=== PATIENT | female | born 1965 | race Caucasian/White ===

== ENCOUNTER 2016-07-14 23:00 | Inpatient (IN) | payer OTHER ==
--- NOTE | ~2016-07-14 | DS ---
Unit #: [id number] #: [id number] Patient: GAL LAST [id number] [facility] [address] [place] [address] [id number] MR#: [id number] NAME: GAL LAST. ROOM: [facility] Age: 51 Sex: F Admission Date: 07/15/2016 : 1965 Discharge Date: 07/18/2016 Attending Physician: Sulaiman Ramires M.D. Primary Care Physician: Generic Doctor Not In System DISCHARGE SUMMARY REASON FOR ADMISSION Alcohol abuse and withdrawal. DIAGNOSTIC STUDIES LABORATORY RESULTS: Unremarkable. HOSPITAL COURSE The patient was admitted to inpatient unit on 07/15/2016 and discharged on 07/18/2016. The patient was treated on the inpatient unit with chemical dependency group, detox protocol, detox monitoring, and psychoeducation. The patient was responsive to treatment. Subsequently, the patient was discharged with a plan to follow up at [facility]. DISCHARGE MEDICATIONS None. DISCHARGE DIAGNOSES Psychiatric: Alcohol use disorder, severe, F10.20. Secondary diagnosis: Deferred. Medical diagnosis: Hypertension. Stressors: Psychosocial stressors. DISCHARGE INSTRUCTIONS The patient to follow up in outpatient clinic as per manager social work. CONDITION ON DISCHARGE The patient was pleasant and cooperative. Denied any psychotic symptom or any suicidal ideation. PROGNOSIS Guarded. DIET AND ACTIVITY As tolerated. Dictated by... Sulaiman Ramires M.D. [facility] Unit #: [id number] #: [id number] Patient: GAL LAST TD: 07/18/2016 18:17 JOB #: [id number] DISCHARGE SUMMARY Page 1 of 1 X Sulaiman Ramires MD X DISCHARGE SUMMARY
--- NOTE | ~2016-07-14 | HP ---
Unit #: [id number] #: [id number] Patient: GAL LAST [id number] [place] [address] [id number] MR#: [id number] NAME: GAL LAST. ROOM: [facility] Age: 51 Sex: F Admission Date: 07/15/2016 : 1965 Attending Physician: Sulaiman Ramires M.D. Admitting Physician: Sulaiman Ramires M.D. Primary Care Physician: Generic Doctor Not In System HISTORY AND PHYSICAL HISTORY OF PRESENT ILLNESS Gal is a 51 year old admitted to [facility] because of her abuse of alcohol. She is detoxing. PAST MEDICAL HISTORY 1. Long history of alcohol abuse. 2. High blood pressure. PAST SURGICAL HISTORY Nothing reported. ALLERGIES Levaquin SOCIAL HISTORY Smokes one-half pack per day. Drinks at least a fifth of bourbon on a daily basis and denies illicit drug use. FAMILY HISTORY Medically noncontributory. REVIEW OF SYSTEMS CONSTITUTIONAL: No fever or chills. HEENT: Denies any sore throat, ear pain or runny nose. CARDIOVASCULAR: Denies chest pain, irregular heart rhythm or palpitations. CHEST: Denies shortness of breath or cough. No hemoptysis. GASTROINTESTINAL: Denies nausea, vomiting, diarrhea or chronic constipation. ENDOCRINE: Denies history of increased thirst or urination. No recent significant weight loss or gain. GENITOURINARY: Denies dysuria, frequency, or hematuria. SKIN: Denies any rashes. HEMATOLOGIC: Denies history of increased bleeding or bruising. MUSCULOSKELETAL: Denies any hot, swollen joints. No generalized muscle pain. NEUROLOGIC: Denies problems with vision or speech. No frequent, severe headaches. No numbness, tingling or weakness in any extremities. Denies loss of bladder or bowel control. CURRENT MEDICATIONS 1. Detox protocol 2. HCTZ 25 mg q day Unit #: [id number] #: [id number] Patient: GAL LAST 3. Cozaar 100 mg q day 4. Vistaril 50 mg q four hours p.r.n. PHYSICAL EXAMINATION GENERAL: Alert, well-nourished, in no apparent distress. VITAL SIGNS: Blood pressure 134/94, heart rate 80, respirations 16, temperature 98.6. WEIGHT: 118 pounds. HEIGHT: 5'4". SKIN: Warm and dry without rash or lesion. HEENT: Normocephalic. TMs not viewed. Oral and nasal passages clear. Conjunctivae clear. Pupils equal, round and reactive to light and accommodation. Extraocular movements intact. NECK: Supple without lymphadenopathy or thyromegaly. HEART: Regular rate and rhythm without murmur. LUNGS: Clear. ABDOMEN: Soft, nontender. : Not done. EXTREMITIES: No evidence of cyanosis, clubbing or edema. Moves all extremities without focal deficit. NEUROLOGICAL: Unable to complete extended exam. She does move all extremities without focal deficit. Hand utility locate technician is equal. She is very unsteady with her gait and is getting around in a wheelchair. IMPRESSION Psychiatric admission RECOMMENDATIONS PSYCHIATRIC: Per psychiatrist. MEDICAL: I see no contraindications to participating in facility's activities. MEDICAL PROGNOSIS Good. MEDICAL CONDITION Stable. Dictated by... Bernice Sibley P.A.-C. for Jabari Barnard/vandana TD: 07/15/2016 22:09 JOB #: [id number] Unit #: [id number] #: [id number] Patient: GAL LAST HISTORY AND PHYSICAL Page 1 of 1 X Bernice Sibley X HISTORY AND PHYSICAL
--- NOTE | ~2016-07-14 | PN ---
Unit #: [id number] #: [id number] Patient: GAL MAST [id number] [facility] [address] [place] [address] [id number] I MR#: [id number] NAME: GAL MAST. ROOM: [facility] Age: 51 Sex: F Admission Date: 07/15/2016 : 1965 Attending Physician: Sulaiman Ramires M.D. Admitting Physician: Sulaiman Ramires M.D. Primary Care Physician: Generic Doctor Not In System [facility] PROGRESS NOTES DATE OF SERVICE 07/16/2016 DISCUSSION Ms. Mast is a 51-year-old female seen on 07/16/2016. The patient continues to have withdrawal symptoms from alcohol, unsteady on her gait. Seem very drowsy, dizzy. The patient currently placed on fall precaution. Uses wheelchair. The patient's blood pressure is 141/96, pulse 81. Complete Review of Systems: Unremarkable. MENTAL STATUS EXAMINATION General Appearance: The patient dressed casually. Attention span, concentration: Fair. Oriented in time, place, and person. Mood and affect: Sad, dysphoric. Speech: Monotone. Thought process: [place]. The patient denied any thoughts of harming self or others but guarded. Recent and remote memory: Poor. Insight and judgment: Poor. DIAGNOSIS Alcohol use disorder, severe. ASSESSMENT/PLAN Advised to continue with current detox protocol, detox monitoring, fall precaution. Advised to lower Ativan from 2 mg to 1 mg p.r.n. If needed, consider low dose of Librium instead of Ativan. We will continue to follow and make necessary changes if needed. Dictated by... Jabari Chang/reyna TD: 07/17/2016 11:59 JOB #: [id number] Unit #: [id number] #: [id number] Patient: GAL MAST PROGRESS NOTES Page 1 of 1 X Sulaiman Raimres MD PROGRESS NOTE
--- NOTE | ~2016-07-14 | PA ---
Unit #: [id number] #: [id number] Patient: GAL MAST [id number] [facility] [address] [place] [address] [id number] I MR#: [id number] NAME: GAL MAST. ROOM: [facility] Age: 51 Sex: F Admission Date: 07/15/2016 : 1965 Date of Assessment: Attending Physician: Sulaiman Ramires M.D. Admitting Physician: Sulaiman Ramires M.D. PSYCHIATRIC ASSESSMENT INFORMANTS The patient's reliability, fair; chart reliability, good. CHIEF COMPLAINT Alcohol detox. HISTORY OF PRESENT ILLNESS Ms. Gal Mast is a 51-year-old female, presented with the above-mentioned complaint. The patient presented with alcohol abuse. BAL level 0.4. Tox screen was completed. The patient scored 8 on CIWA and 0 on COWS. The patient reported she was treated at the hospital for withdrawals with Ativan. The patient reported drinking one-fifth of bourbon daily. The patient reported decrease in ADL, prolonged unemployment, strained relationship due to substance abuse. The patient currently denied any suicidal or homicidal ideation. Denied any psychotic symptom, but needing help with alcohol abuse and withdrawals. The patient reported tobacco use, age of onset 16; alcohol abuse, age of onset 21; one-fifth of bourbon daily. The patient reported longest period of sobriety 30 days, last period of sobriety 2 years ago. The patient reported history of blackouts. No history of HIV or hepatitis. No history of IV drug abuse. History of withdrawal symptom. Currently, reporting restlessness, nervousness, diarrhea, diaphoresis, poor appetite, sleep problems, tremor. PAST PSYCHIATRIC HISTORY Remarkable for history of inpatient treatment multiple times at [facility] for chemical dependency 2016, partial program 2016, inpatient [facility], outpatient treatment. No history of any suicide attempt. FAMILY HISTORY AND SOCIAL HISTORY The patient has a poor support system. Family history is remarkable for history of multiple family members with substance abuse. No legal problem. No history of abuse. MEDICAL HISTORY Remarkable for history of hypertension. Musculoskeletal; muscle strength and tone, no atrophy or abnormal movement. Gait normal. MEDICATION HISTORY The patient is on losartan. ALLERGIES No known drug allergies. Unit #: [id number] #: [id number] Patient: GAL MAST SUBSTANCE ABUSE HISTORY Please see above. REVIEW OF SYSTEMS HEENT: Eyes, clear. Ears, nose, mouth, and throat; clear. CARDIOVASCULAR: Unremarkable. RESPIRATORY: Unremarkable. GI: Unremarkable. : Unremarkable. SKIN: Unremarkable. LYMPH NODE: Unremarkable. NEUROLOGIC: Unremarkable. ENDOCRINE: Unremarkable. HEMATOLOGIC: Unremarkable. ALLERGIC/IMMUNOLOGIC: Unremarkable. MUSCULOSKELETAL: Muscle strength and tone, no atrophy or abnormal movement. Gait normal. MENTAL STATUS EXAMINATION CONSTITUTIONAL: Measurement of vital signs; temperature 98.4, pulse 104, respirations 20, blood pressure 135/95; height 5 feet 4 inches, weight 118 pounds. GENERAL APPEARANCE: The patient dressed casually. The patient did not show any facial deformity. MUSCULOSKELETAL: Please see above. PSYCHIATRIC EXAMINATION Description of speech; regular rate, normal volume, normal articulation, coherent. Description of thought process, goal directed. Description of association, intact. Description of abnormal psychotic thinking; the patient denied any hallucination or delusions, mood lability and substance abuse. Description of the patient's judgment; concerning everyday activity, poor. Social situation, poor. Concerning psychiatric condition, poor. Complete mental status examination; oriented in time, place, and person. Recent and remote memory, fair. Attention span and concentration, fair. Language, able to name object and repeat phrases. Fund of knowledge, aware of current event and passive vocabulary intact. Mood and affect, sad and dysphoric. Insight and judgment, fair to poor. ASSETS AND LIABILITIES Assets; the patient is articulate, able to take care of her ADL. Liability; history of alcohol abuse. ADMITTING DIAGNOSES Psychiatric: Alcohol use disorder, severe, F10.20. Secondary diagnosis: Deferred. Medical diagnosis: Hypertension. Stressors: Psychosocial stressors. PSYCHIATRIC PLAN AND TREATMENT GOAL 1. Advised to admit the patient on the inpatient unit. Provide safe, supportive, and structured environment. Unit #: [id number] #: [id number] Patient: GAL MAST 2. Ordered labs; CBC, CMP, UA, and UDS. 3. Precautions for detox protocol and detox monitoring. 4. Advised to resume home medication. If needed, consider further adjustment of medication. 5. The patient to attend all the programing on the inpatient unit including group therapy, individual therapy, family session. 6. Treatment goal to attain euthymic mood, gain insight into her problem, and learn coping skills. DISCHARGE PLAN Plan to stabilize the patient and consider followup in outpatient program. ESTIMATED LENGTH OF STAY 5 days. Dictated by... Jabari Chang/licha TD: 07/16/2016 03:10 JOB #: [id number] PSYCHIATRIC ASSESSMENT Page 1 of 1 X Sulaiman Ramires MD X PSYCHIATRIC ASSESSMENT
--- NOTE | ~2016-07-14 | PN ---
Unit #: [id number] #: [id number] Patient: GAL MAST [id number] [facility] [address] [place] [address] [id number] I MR#: [id number] NAME: GAL MAST. ROOM: [facility] Age: 51 Sex: F Admission Date: 07/15/2016 : 1965 Attending Physician: Sulaiman Ramires M.D. Admitting Physician: Sulaiman Ramires M.D. Primary Care Physician: Generic Doctor Not In System [facility] PROGRESS NOTES DATE OF SERVICE 07/17/16 DISCUSSION Ms. Gal Mast is a 51-year-old female. Patient continues to be very anxious, nervous. Mood was labile. Patient having trouble with the balance, still having withdrawal symptoms. Vital signs: 98.1, 112, 120/87 COMPLETE REVIEW OF SYSTEMS Unremarkable. MENTAL STATUS EXAMINATION GENERAL APPEARANCE: Patient dressed casually. ATTENTION SPAN AND CONCENTRATION: Fair. Oriented in place and person. MOOD AND AFFECT: Labile. SPEECH: Monotone. THOUGHT PROCESS: [place]. Patient denied any thoughts of harming self or others, but anxious, nervous, having withdrawal symptoms from alcohol. RECENT AND REMOTE MEMORY: Poor. INSIGHT AND JUDGMENT: Poor. DIAGNOSIS Alcohol use disorder, severe ASSESSMENT/PLAN Advised to continue with current medication and therapeutic protocol. Advised to change Ativan to Librium 20 mg b.i.d. and continue with close monitoring, monitor for fall. Also one-to-one monitoring. If needed, consider further adjustment in medication. Dictated by... Jabari hCang/diane TD: 07/18/2016 03:15 JOB #: [id number] Unit #: [id number] #: [id number] Patient: GAL MAST [facility] PROGRESS NOTES Page 1 of 1 X Sulaiman Ramires MD PROGRESS NOTE
== END 2016-07-18 10:20 | disposition home or self-care (01) | DRG 897 ==
LOC: P1E 07-15 07:05
PROC: HZ2ZZZZ Detoxification Services for Substance Abuse Treatment (ICD-10-PCS; principal; 2016-07-15)
DX: F10.239 Alcohol dependence with withdrawal, unspecified (principal); I10 Essential (primary) hypertension; F17.210 Nicotine dependence, cigarettes, uncomplicated; Z91.81 History of falling; Z56.0 Unemployment, unspecified
CPT/HCPCS: 86592